=== PATIENT | male | born 1955 | race Caucasian/White ===

== ENCOUNTER 2017-03-15 07:15 | Emergency (ER) | payer OTHER ==
[2017-03-15 07:18] VITALS: BP 132/82
--- NOTE | 2017-03-15 07:59 | ED UPPER/LOWER EXTREMITY COMPL ---
History of Present Illness General Chief Complaint: Laceration Procedure Stated Complaint: LAC TO LEFTHAND 2ND DIGIT Source: patient Exam Limitations: no limitations Vital Signs & Intake/Output Vital Signs & Intake/Output Vital Signs Date Time Temp Pulse Resp B/P B/P Pulse O2 O2 Flow FiO2 Mean Ox Delivery Rate 03/15 0718 69 16 132/82 96 Room Air Allergies Coded Allergies: ibuprofen (Severe, GI 03/15/17) Reconcile Medications No Known Home Medications Triage Note: PT TO ED WITH LAC TO LT FIRST FINGER X1 DAY S/P GETTING CUT WITH GLASS YESTERDAY FROM A TRASH CAN. UNSURE OF LAST TETANUS SHOT. LAC APPROX 1CM LONG. Triage Nurses Notes Reviewed? yes Onset: Abrupt Duration: constant Timing: recent history Severity: mild Severity Numbers: 3 HPI: Patient is a 61-year-old male who presents emergency him seen that yesterday in the afternoon he was reaching in a full garbage bag where he subsequently cut the distal aspect of his left second digit index finger with a sharp unknown object in which he is suspecting glass in which he states that he's been applying compresses to the region however he is concerned that he may need suture repair. Tetanus is unknown. Patient is right arm dominant. Past History Travel History Traveled to [place] past 21 day No Medical History Any Pertinent Medical History? none Surgical History Surgical History: non-contributory Psychosocial History What is your primary language Malay Tobacco Use: Never used Family History Hx Contributory? No Review of Systems Review of Systems Constitutional: Reports: no symptoms. EENTM: Reports: no symptoms. Respiratory: Reports: no symptoms. Cardiovascular: Reports: no symptoms. Gastrointestinal/Abdominal: Reports: no symptoms. Genitourinary: Reports: no symptoms. Musculoskeletal: Reports: see HPI, joint pain. Skin: Reports: see HPI. Neurological/Psychological: Reports: no symptoms. Hematologic/Endocrine: Reports: see HPI, bleeding. Immunological: Reports: no symptoms. All Other Systems: Reviewed and Negative Physical Exam Physical Exam General Appearance: no apparent distress, alert, comfortable Neurologic/Tendon: normal sensation, normal motor functions, normal tendon functions, responds to pain, no evidence tendon injury Skin: normal color, warm/dry Comments: Well-developed well-nourished no apparent distress. HEENT: Atraumatic, extraocular motion intact Neck: Supple, no lymphadenopathy Back: Nontender Respiratory: No respiratory distress Extremities: SEE DIAGRAM Neuro: Alert and oriented x3 Psych: Mood affect normal, normal memory normal judgment. Diagram Hands Front 1) 1 cm clean linear laceration full active range of motion of flexion and extension full resisted range of motion noted with flexion extension no tendon deficit no exposed bone capillary refill intact Progress Differential Diagnosis: arterial insufficiency, compartment syndrome, contusion, dislocation, DVT, fracture, gout, septic arthritis, sprain, tendon injury Plan of Care: No concerns of tendon deficit on exam. Margins were revised with suture placement patient tolerated well. Bacitracin bandage was applied Departure Departure Disposition: HOME OR SELF CARE Condition: Stable Clinical Impression Primary Impression: Laceration of finger of left hand Referrals: JAYY IQBAL,KATIA Nelson (PCP/Family) Additional Instructions: As discussed begin to apply bacitracin to the area once a day for the following 4 days then the area opened and dry and clean to improve healing. If you note signs of infection redness, pain, swelling, discharge return to emergency room. Return to emergency room in 7-10 days for suture removal. Departure Forms: Customer Survey General Discharge Information Prescriptions: Current Visit Scripts No Known Home Medications Procedures Laceration/Wound Repair Laceration/Wound Repair: Wound Location: upper extremity (LEFT INDEX 2ND DIGIT) Wound's Depth, Shape: linear, superficial Wound Length (cm): 1 Wound Explored: clean, no foreign body removed, irrigated extensively Irrigated w/ Saline (ccs): 500 Betadine Prep? Yes Anesthesia: 1% lidocaine Volume Anesthetic (ccs): 3 Wound Repaired With: sutures Suture Size/Type: 5:0 Number of Sutures: 5
== END 2017-03-15 09:25 ==
LOC: ERH 07:15
DX: S61.211A Laceration without foreign body of left index finger without damage to nail, initial encounter (principal); W45.8XXA Other foreign body or object entering through skin, initial encounter; Y93.E9 Activity, other interior property and clothing maintenance; Y92.9 Unspecified place or not applicable
CPT/HCPCS: 90471; 90714